=== PATIENT | female | born 1940 | race Caucasian/White ===

== ENCOUNTER 2016-11-06 06:42 | Day surgery (SDC) | payer MEDICARE, BC ==
[~2016-11-06] VITALS: Ht 167.6 cm; Wt 85.9 kg
[~2016-11-06 06:42] MED LIST: ASPI-535 PO; ESCI5TAB PO; FURO20TA3 PO; METO-448 PO; SIMV10TA PO
[2016-11-06 07:35] VITALS: Ht 167.6 cm; Wt 85.9 kg
[2016-11-06 08:02] VITALS: BP 156/73; PULSE 69; RESP 18
[2016-11-06] MEDS ORDERED: PROPOFOL 20 ML ONE ×2 (08:17→09:09)
[2016-11-06 09:38] VITALS: BP 150/72; PULSE 63; RESP 13
--- NOTE | 2016-11-06 10:22 | GILP ---
DATE OF PROCEDURE: 11/06/2016 NAME OF PROCEDURES: 1. Esophagogastroduodenoscopy and biopsy. 2. Colonoscopy and biopsy. SURGEON: Tatum Hudson MD PREOPERATIVE DIAGNOSES: 1. Abdominal pain. 2. Chronic heartburn. 3. Change in the bowel habit. POSTOPERATIVE DIAGNOSES: 1. Hiatal hernia. 2. Reflux esophagitis. 3. Gastritis with erosions. 4. Gastric mucosal biopsies were taken for Helicobacter pylori test. 5. Colonoscopy all the way to the cecum. 6. Diverticulosis of the colon. 7. Internal hemorrhoids. 8. Random biopsies were taken to rule out microscopic colitis. INDICATION FOR THE PROCEDURE: Ms. Marlin Hernández is a 76-year-old female patient who had upper abdom inal pain and chronic heartburn, not responding to therapy. The patient also had change in the kristie l habit. The patient was scheduled for endoscopy and colonoscopy. The procedures and possible complications were well explained to the patient, she understood and con sented to the procedure. DESCRIPTION OF PROCEDURE: Under the influence of anesthesia, the gastroscope was carefully introduc ed into the esophagus and under direct vision, it was advanced to the stomach and through the pyloru s into the duodenal bulb and descending duodenum. FINDINGS: ESOPHAGUS: The patient had hiatal hernia with reflux esophagitis. STOMACH: She had gastritis with erosions. Gastric mucosal biopsies were taken for H. pylori test. DUODENUM: Normal. The colonoscope was carefully introduced in the rectum and under direct vision, it was advanced all the way to the cecum. FINDINGS: The patient had diverticulosis of the colon. She also had internal hemorrhoids. No colo n neoplasm was identified. Random biopsies were taken to rule out microscopic colitis. She tolerated the procedures very well and there was no complication from the procedures. At the en d of the procedures, she was awake with stable vital signs and she was discharged home to the care o f her family. IMPRESSION: Please see postoperative diagnoses. PLAN: 1. Nexium 40 mg p.o. q.a.m. 2. Await histopathology reports. 3. Because of the patient's age, she will not need another screening colonoscopy. Dictated By: TATUM NGUYEN/ANTOLIN Conf#: [id number] DID#: [id number] CC: TATUM HUDSON MD;*EndCC*
== END 2016-11-06 11:40 | disposition home or self-care (01) ==
LOC: GIL 06:42
PROVIDERS: ATTEND Internal Medicine Gastroenterology
DX: R19.4 Change in bowel habit (principal); K44.1 Diaphragmatic hernia with gangrene; K21.0 Gastro-esophageal reflux disease with esophagitis; K29.60 Other gastritis without bleeding; K57.90 Diverticulosis of intestine, part unspecified, without perforation or abscess without bleeding; K64.8 Other hemorrhoids; I10 Essential (primary) hypertension; E78.5 Hyperlipidemia, unspecified; E66.9 Obesity, unspecified; Z68.30 Body mass index [BMI] 30.0-30.9, adult
CPT/HCPCS: 87081; 88305

== ENCOUNTER → 2017-04-02 | Outpatient (CLI) | payer MEDICARE, BC ==
--- NOTE | 2017-04-02 12:29 | RADRPT ---
PROCEDURE: US Lower extremity Venous. CLINICAL INDICATION: Bilateral lower extremity edema , pain TECHNIQUE: Multiple sonographic images of the bilateral lower extremity deep venous system was obt ained utilizing grayscale, color-flow, compressive sonography and doppler imaging with augmentation. The images were reviewed on a PACS workstation. COMPARISON: None. FINDINGS: There is normal compressibility and flow within the bilateral common femoral, femoral , posterior ti bial and popliteal veins. RPTAT: AA IMPRESSION: No sonographic evidence for deep venous thrombosis. .Sukhdeep More MD, MD Date Time Electronically viewed and signed by .Sukhdeep More MD, on 04/02/2017 12:28 .S/
== END | disposition home or self-care (01) ==
LOC: VAS 11:48
PROVIDERS: ATTEND Internal Medicine
DX: M79.662 Pain in left lower leg (principal); M79.661 Pain in right lower leg
CPT/HCPCS: 93970

== ENCOUNTER → 2017-04-18 | Outpatient (CLI) | payer MEDICARE, BC ==
[~2017-04-18] MED LIST changes: +IOHEXOL 300MG/ML 150 ML BTL ONE; +SOD CHLORIDE 0.9% 100 ML ONE
--- NOTE | 2017-04-18 17:57 | RADRPT ---
PROCEDURE: CT Abdomen and Pelvis with contrast. CLINICAL INDICATION: Abdomen and pelvis pain. TECHNIQUE: CT scan of the abdomen and pelvis with contrast was performed. The patient was scanned following the uncomplicated intravenous administration of 100 cc of Omnipaque-300. Coronal and sag ittal reformatted images were obtained from the axial source images. Images were reviewed on a high- resolution PACS workstation. Total exam DLP is 1249.94 mGy-cm. CTDIvol is 22.15 mGy. One or more of the following dose reduction techniques were used: Automated exposure control, adjustment of the mA and/or kV according to patient size, use of iterative reconstruction technique. COMPARISON: None. FINDINGS: The lung bases are normal. There is no pleural effusion. The liver is normal in size and attenuation. There is no focal hepatic lesion. The gallbladder is surgically absent with clips noted in the gallbladder bed. The bile ducts are nor mal. The spleen is also surgically absent with clips noted in the left upper quadrant. Both adrenals are normal with no enlargement or mass. The pancreas is unremarkable with no mass or evidence of pancreatitis. Both kidneys demonstrate normal contrast enhancement. There is no renal mass or hydronephrosis. The abdominal aorta is not dilated. There is no retroperitoneal lymphadenopathy or mass. Multiple surgical clips are present in the left side of the retroperitoneum. There is no pelvic lymphadenopathy or mass. The bladder and distal ureters are normal. The periappendiceal region is unremarkable with no evidence of appendicitis. There is diverticulosis of the sigmoid colon without evidence of diverticulitis. The bowel and mesen truman are otherwise normal. There is no free fluid or free gas. There are degenerative changes of the spine and hips. There is no acute fracture or lytic lesion. Th ere are old healed fractures of the the bilateral superior and inferior pubic rami. IMPRESSION: 1. Status post cholecystectomy and splenectomy. 2. Prior left retroperitoneal surgery. 3. Diverticulosis of the sigmoid colon without evidence of diverticulitis. 4. 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 5. Old healed fractures of the bilateral superior and inferior pubic rami. 6. Otherwise unremarkable study. RPTAT: QQ .Antwon Tillman MD, MD Date Time Electronically viewed and signed by .Antwon Tillman MD, on 04/18/2017 17:56 .R/
== END | disposition home or self-care (01) ==
LOC: C/S 08:30
PROVIDERS: ATTEND Internal Medicine
DX: M79.89 Other specified soft tissue disorders (principal); R23.8 Other skin changes; Z85.43 Personal history of malignant neoplasm of ovary
CPT/HCPCS: 74177; Q9967